=== PATIENT | male | born 1995 | race Caucasian/White ===

== ENCOUNTER 2023-11-23 22:50 | Emergency (ER) | payer OTHER ==
[2023-11-23 23:12] VITALS: TEMP 97.8
[2023-11-23] MEDS ORDERED: SODIUM CHLORIDE 0.9% 1,000 ML IV ONE (23:16)
[2023-11-23] MEDS ORDERED: MORPHINE SULFATE 4 MG/ML SYRINGE IV STA (23:19)
[2023-11-24] LABS: Basophils # (A) 0.1 k/uL (0-0.2); Basophils % (A) 1 %; Eosinophils % (A) 0 %; HCT 48.1 % (39.0-53.0); HGB 16.7 gm/dL (13.0-17.5); Lymphocytes # (A) 1.3 k/uL (1.0-4.8); Lymphocytes % (A) 12 %; MCH 31.5 pg (25.0-35.0); MCHC 34.8 g/dL (31.0-37.0); MCV 90.4 fL (80.0-100.0); Mean Platelet Volume 7.9; Monocytes # (A) 1.2 k/uL (0-1.0); Monocytes % (A) 11 %; Neutrophils % (A) 74 %; Platelet Count 189 k/uL (150-450); RBC 5.32 m/uL (4.30-5.90); RDW 12.1 % (11.5-15.5); WBC 10.8 k/uL (3.8-10.6)
[2023-11-24 00:09] LABS: ALT 36 U/L (4-49); African American GFR (CKD) >90 (>60 ml/min/1.73 sqM); Amylase 72 U/L (30-110); Anion Gap 17 mmol/L; Blood Urea Nitrogen 12 mg/dL (9-20); Calcium 9.4 mg/dL (8.4-10.2); Carbon Dioxide 17 mmol/L (22-30); Chloride 96 mmol/L (98-107); Glucose 116 mg/dL (74-99); Lipase 104 U/L (23-300); Non-African American GFR(CKD) >90 (>60 ml/min/1.73 sqM); Sodium 130 mmol/L (137-145); Total Bilirubin 0.7 mg/dL (0.2-1.3); Total Protein 8.8 g/dL (6.3-8.2)
[2023-11-24 00:22] LABS: Potassium 4.2 mmol/L (3.5-5.1)
[2023-11-24 00:23] LABS: AST 43 U/L (17-59); Alkaline Phosphatase 84 U/L (38-126)
[2023-11-24 01:17] LABS: Appearance,Urine Clear (Clear); Bilirubin,Urine Negative (Negative); Blood,Urine Moderate (Negative); Color,Urine Colorless; Glucose,Urine (UA) Negative (Negative); Ketones,Urine Negative (Negative); Leukocyte Esterase,Urine Negative (Negative); Mucus,Urine Rare /hpf; Nitrite,Urine Negative (Negative); PH, Urine 5.5 (5.0-8.0); Protein,Urine Negative (Negative); RBC,Urine 3 /hpf (0-5); Specific Gravity,Urine 1.007 (1.001-1.035); Urobilinogen,Urine <2.0 mg/dL (<2.0); WBC,Urine <1 /hpf (0-5)
[2023-11-24 01:25] VITALS: PULSE 95; RESP 16
--- NOTE | 2023-11-24 01:32 | CT ---
EXAM: CT Abdomen and Pelvis Without Intravenous Contrast CLINICAL HISTORY: ITS.REASON CT Reason: abdominal pain TECHNIQUE: Axial computed tomography images of the abdomen and pelvis without intravenous contrast. CTDI is 18.6 mGy and DLP is 1123 mGy-cm. This CT exam was performed using one or more of the following dose reduction techniques: automated exposure control, adjustment of the mA and/or kV according to patient size, and/or use of iterative reconstruction technique. COMPARISON: No relevant prior studies available. FINDINGS: Lung bases: Unremarkable. No mass. No consolidation. ABDOMEN: Liver: Hepatic steatosis. Gallbladder and bile ducts: Unremarkable. No calcified stones. No ductal dilation. Pancreas: Unremarkable. No ductal dilation. Spleen: Unremarkable. No splenomegaly. Adrenals: Unremarkable. No mass. Kidneys and ureters: Unremarkable. No hydronephrosis or nephrolithiasis. Stomach and bowel: Diverticulosis, without acute diverticulitis. No small bowel obstruction. No free air. PELVIS: Appendix: No findings to suggest acute appendicitis. Bladder: Decompressed urinary bladder. No stones. Reproductive: Unremarkable as visualized. ABDOMEN and PELVIS: Intraperitoneal space: See above. Bones/joints: No acute fracture. No dislocation. Soft tissues: Small fat containing a focal hernia. Vasculature: Unremarkable. No abdominal aortic aneurysm. Lymph nodes: Unremarkable. No enlarged lymph nodes. IMPRESSION: No acute findings in the abdomen or pelvis.
--- NOTE | 2023-11-24 01:42 | ED ---
Abdominal Pain HPI - General Chief Complaint: Abdominal Pain Stated Complaint: Abdominal Pain Time Seen by Provider: 11/23/23 22:58 Source: patient Mode of arrival: ambulatory Limitations: no limitations - Related Data Previous Rx's Medication Instructions Recorded Dicyclomine [Bentyl] 20 mg PO QID #15 tablet 11/24/23 Allergies Allergy/AdvReac Type Severity Reaction Status Date / Time No Known Allergies Allergy Verified 06/22/16 06:52 Review of Systems ROS Statement: Those systems with pertinent positive or pertinent negative responses have been documented in the HPI. ROS Other: All systems not noted in ROS Statement are negative. Past Medical History Past Medical History: No Reported History History of Any Multi-Drug Resistant Organisms: None Reported Past Surgical History: No Surgical Hx Reported Past Psychological History: No Psychological Hx Reported Smoking Status: Current every day smoker Past Alcohol Use History: None Reported Past Drug Use History: None Reported General Exam Limitations: no limitations Course Vital Signs 11/23/23 11/23/23 11/24/23 22:52 23:49 01:21 Temperature 97.8 F Pulse Rate 114 H 100 95 Respiratory 20 18 16 Rate Blood Pressure 134/84 136/79 132/82 O2 Sat by Pulse 99 100 95 Oximetry Medical Decision Making - Lab Data Result diagrams: 11/23/23 23:36 11/23/23 23:36 Lab Results 11/23/23 11/23/23 11/23/23 Range/Units 23:36 23:36 23:36 WBC 10.8 H (3.8-10.6) k/uL RBC 5.32 (4.30-5.90) m/uL Hgb 16.7 (13.0-17.5) gm/dL Hct 48.1 (39.0-53.0) % MCV 90.4 (80.0-100.0) fL MCH 31.5 (25.0-35.0) pg MCHC 34.8 (31.0-37.0) g/dL RDW 12.1 (11.5-15.5) % Plt Count 189 (150-450) k/uL MPV 7.9 Neutrophils % 74 % Lymphocytes % 12 % Monocytes % 11 % Eosinophils % 0 % Basophils % 1 % Neutrophils # 8.0 H (1.3-7.7) k/uL Lymphocytes # 1.3 (1.0-4.8) k/uL Monocytes # 1.2 H (0-1.0) k/uL Eosinophils # 0.0 (0-0.7) k/uL Basophils # 0.1 (0-0.2) k/uL Sodium 130 L (137-145) mmol/L Potassium 4.2 (3.5-5.1) mmol/L Chloride 96 L (98-107) mmol/L Carbon Dioxide 17 L (22-30) mmol/L Anion Gap 17 mmol/L BUN 12 (9-20) mg/dL Creatinine 0.78 (0.66-1.25) mg/dL Est GFR (CKD-EPI)AfAm >90 (>60 ml/min/1.73 sqM) Est GFR (CKD-EPI)NonAf >90 (>60 ml/min/1.73 sqM) Glucose 116 H (74-99) mg/dL Plasma Lactic Acid Jay 1.0 (0.7-2.0) mmol/L Calcium 9.4 (8.4-10.2) mg/dL Total Bilirubin 0.7 (0.2-1.3) mg/dL AST 43 (17-59) U/L ALT 36 (4-49) U/L Alkaline Phosphatase 84 (38-126) U/L Troponin I (0.000-0.034) ng/mL Total Protein 8.8 H (6.3-8.2) g/dL Albumin 5.0 (3.5-5.0) g/dL Amylase 72 (30-110) U/L Lipase 104 (23-300) U/L Urine Color Urine Appearance (Clear) Urine pH (5.0-8.0) Ur Specific [place] (1.001-1.035) Urine Protein (Negative) Urine Glucose (UA) (Negative) Urine Ketones (Negative) Urine Blood (Negative) Urine Nitrite (Negative) Urine Bilirubin (Negative) Urine Urobilinogen (<2.0) mg/dL Ur Leukocyte Esterase (Negative) Urine RBC (0-5) /hpf Urine WBC (0-5) /hpf Urine Mucus (None) /hpf 11/23/23 11/24/23 Range/Units 23:36 00:50 WBC (3.8-10.6) k/uL RBC (4.30-5.90) m/uL Hgb (13.0-17.5) gm/dL Hct (39.0-53.0) % MCV (80.0-100.0) fL MCH (25.0-35.0) pg MCHC (31.0-37.0) g/dL RDW (11.5-15.5) % Plt Count (150-450) k/uL MPV Neutrophils % % Lymphocytes % % Monocytes % % Eosinophils % % Basophils % % Neutrophils # (1.3-7.7) k/uL Lymphocytes # (1.0-4.8) k/uL Monocytes # (0-1.0) k/uL Eosinophils # (0-0.7) k/uL Basophils # (0-0.2) k/uL Sodium (137-145) mmol/L Potassium (3.5-5.1) mmol/L Chloride (98-107) mmol/L Carbon Dioxide (22-30) mmol/L Anion Gap mmol/L BUN (9-20) mg/dL Creatinine (0.66-1.25) mg/dL Est GFR (CKD-EPI)AfAm (>60 ml/min/1.73 sqM) Est GFR (CKD-EPI)NonAf (>60 ml/min/1.73 sqM) Glucose (74-99) mg/dL Plasma Lactic Acid Jay (0.7-2.0) mmol/L Calcium (8.4-10.2) mg/dL Total Bilirubin (0.2-1.3) mg/dL AST (17-59) U/L ALT (4-49) U/L Alkaline Phosphatase (38-126) U/L Troponin I <0.012 (0.000-0.034) ng/mL Total Protein (6.3-8.2) g/dL Albumin (3.5-5.0) g/dL Amylase (30-110) U/L Lipase (23-300) U/L Urine Color Colorless Urine Appearance Clear (Clear) Urine pH 5.5 (5.0-8.0) Ur Specific [place] 1.007 (1.001-1.035) Urine Protein Negative (Negative) Urine Glucose (UA) Negative (Negative) Urine Ketones Negative (Negative) Urine Blood Moderate H (Negative) Urine Nitrite Negative (Negative) Urine Bilirubin Negative (Negative) Urine Urobilinogen <2.0 (<2.0) mg/dL Ur Leukocyte Esterase Negative (Negative) Urine RBC 3 (0-5) /hpf Urine WBC <1 (0-5) /hpf Urine Mucus Rare H (None) /hpf Disposition Clinical Impression: Abdominal pain Disposition: HOME SELF-CARE Condition: Good Instructions (If sedation given, give patient instructions): Abdominal Pain (ED) Prescriptions: Dicyclomine [Bentyl] 20 mg PO QID #15 tablet Is patient prescribed a controlled substance at d/c from ED?: No Referrals: Gita Serrano MD [Primary Care Provider] - 1-2 days
[2023-11-24 01:49] VITALS: BP 132/82
== END 2023-11-24 01:59 | disposition home or self-care (01) ==
LOC: EC 22:50
DX: R10.9 Unspecified abdominal pain (principal); F17.200 Nicotine dependence, unspecified, uncomplicated
CPT/HCPCS: 36415; 80053; 82150; 83605; 83690; 84484; 85025; 81001; 74176; 99284; 96374; 96361; J2270

== ENCOUNTER 2024-05-02 13:02 | Emergency (ER) | payer OTHER ==
--- NOTE | 2024-05-02 13:19 | ED ---
General Adult HPI - General Chief complaint: Arrhythmia/Palpitations Stated complaint: hard time breathing, tingling hands Time Seen by Provider: 05/02/24 13:09 Source: patient, family, RN notes reviewed Mode of arrival: wheelchair Limitations: no limitations - History of Present Illness Initial comments: Patient is a 29-year-old male presenting to the emergency department with concerns of palpitations. Onset of symptoms was less than 1 hour ago. Patient also feels short of breath and tingling more in his hands however somewhat diffusely. No history of similar symptoms previously. Patient denies stress or anxiety. Patient denies drug use. No stimulant use. Patient does smoke and smoke marijuana. - Related Data Home Medications Medication Instructions Recorded Confirmed No Known Home Medications 05/02/24 05/02/24 Allergies Allergy/AdvReac Type Severity Reaction Status Date / Time No Known Allergies Allergy Verified 05/02/24 13:50 Review of Systems ROS Statement: Those systems with pertinent positive or pertinent negative responses have been documented in the HPI. ROS Other: All systems not noted in ROS Statement are negative. Constitutional: Denies: fever Eyes: Denies: eye pain ENT: Denies: ear pain Respiratory: Reports: as per HPI, cough (Mild cough last couple days), dyspnea Cardiovascular: Reports: as per HPI, palpitations. Denies: chest pain Endocrine: Denies: fatigue Gastrointestinal: Denies: abdominal pain Neurological: Reports: paresthesias Past Medical History Past Medical History: No Reported History History of Any Multi-Drug Resistant Organisms: None Reported Past Surgical History: No Surgical Hx Reported Past Psychological History: No Psychological Hx Reported Smoking Status: Current every day smoker Past Alcohol Use History: None Reported Past Drug Use History: None Reported General Exam Limitations: no limitations General appearance: alert, anxious Head exam: Present: normocephalic Eye exam: Present: normal appearance, PERRL, EOMI Neck exam: Present: normal inspection Respiratory exam: Present: normal lung sounds bilaterally Cardiovascular Exam: Present: tachycardia, normal heart sounds Expanded Peripheral pulses: 2+: Radial (R), Radial (L), Dorsalis Pedis (R), Dorsalis Pedis (L) GI/Abdominal exam: Present: soft. Absent: tenderness Extremities exam: Present: normal inspection. Absent: pedal edema, calf tenderness Neurological exam: Present: alert Psychiatric exam: Present: anxious (Tearful) Skin exam: Present: normal color Course Vital Signs 05/02/24 05/02/24 05/02/24 13:14 13:15 13:30 Temperature 99.2 F Pulse Rate 128 H 126 H 125 H Respiratory 20 24 32 H Rate Blood Pressure 131/90 146/135 131/90 O2 Sat by Pulse 96 98 Oximetry 05/02/24 05/02/24 05/02/24 13:45 14:00 14:30 Temperature Pulse Rate 108 H 111 H Respiratory 32 H 20 18 Rate Blood Pressure 116/86 127/90 124/83 O2 Sat by Pulse 100 98 Oximetry 05/02/24 05/02/24 05/02/24 15:00 15:30 16:00 Temperature Pulse Rate 104 H 118 H 93 Respiratory 15 Rate Blood Pressure 123/90 106/75 136/89 O2 Sat by Pulse 97 97 100 Oximetry EKG Findings - EKG Results: EKG: interpreted by AMBER, sinus rhythm, normal axis, normal QRS, normal ST/T EKG shows: tachycardia Medical Decision Making - Medical Decision Making Was pt. sent in by a medical professional or institution (, PA, TELEPHONE DIRECTORY DISTRIBUTOR DRIVER, urgent care, hospital, or [place] health care facility...) When possible be specific @ -No Did you speak to anyone other than the patient for history (EMS, parent, family, police, friend...)? What history was obtained from this source @ -Family helps provide history as patient does not want to talk at presentat ion Did you review nursing and triage notes (agree or disagree)? Why? @ -I reviewed and agree with nursing and triage notes Were old charts reviewed (outside hosp., previous admission, EMS record, old EKG, old radiological studies, urgent care reports/EKG's, [place] health care facility records)? Report findings @ -No old charts were reviewed Differential Diagnosis (chest pain, altered mental status, abdominal pain women, abdominal pain men, vaginal bleeding, weakness, fever, dyspnea, syncope, headache, dizziness, GI bleed, back pain, seizure, CVA, palpatations, mental health, musculoskeletal)? @ -Differential Palpitations Ventricular arrhythmias, atrial arrhythmias, myocardial infarction, anemia, th yrotoxicosis, electrolyte imbalance, hypokalemia, pulmonary embolism, pulmonary disease, drugs, alcohol, anxiety, stress.... This is not meant to be an all-inclusive list. EKG interpreted by me (3pts min.). @ -As above X-rays interpreted by me (1pt min.). @ -Chest x-ray shows no acute process CT interpreted by me (1pt min.). @ -CT scan showed no pulmonary embolism U/S interpreted by me (1pt. min.). @ -None done What testing was considered but not performed or refused? (CT, X-rays, U/S, labs )? Why? @ -None What meds were considered but not given or refused? Why? @ -None Did you discuss the management of the patient with other professionals (professionals i.e. , PA, TELEPHONE DIRECTORY DISTRIBUTOR DRIVER, lab, RT, psych nurse, sexual assault social worker, wrapper layer and examiner soft work, teacher, air intelligence officer, case aide)? Give summary @ -No Was smoking cessation discussed for >3mins.? @ -No Was critical care preformed (if so, how long)? @ -No Were there social determinants of health that impacted care today? How? (Homelessness, low income, unemployed, alcoholism, drug addiction, transportation, low edu. Level, literacy, decrease access to med. care, shelter, rehab)? @ -No Was there de-escalation of care discussed even if they declined (Discuss DNR or withdrawal of care, Hospice)? DNR status @ -No What co-morbidities impacted this encounter? (DM, HTN, Smoking, COPD, CAD, Cancer, CVA, ARF, Chemo, Hep., AIDS, mental health diagnosis, sleep apnea, morbid obesity)? @ -None Was patient admitted / discharged? Hospital course, mention meds given and route, prescriptions, significant lab abnormalities, going to OR and other pertinent info. @ -Patient reevaluated and symptoms resolved following Ativan. Patient family updated on results and need for follow-up. Undiagnosed new problem with uncertain prognosis? @ -No Drug Therapy requiring intensive monitoring for toxicity (Heparin, Nitro, Insulin, Cardizem)? @ -No Were any procedures done? @ -No Diagnosis/symptom? @ -Palpitation Acute, or Chronic, or Acute on Chronic? @ -Acute Uncomplicated (without systemic symptoms) or Complicated (systemic symptoms)? @ -Default Side effects of treatment? @ -No Exacerbation, Progression, or Severe Exacerbation? @ -No Poses a threat to life or bodily function? How? (Chest pain, [place], [place], pneumonia, PE, COPD, DKA, ARF, appy, cholecystitis, CVA, Diverticulitis, Homicidal, Suicidal, threat to staff... and all critical care pts) @ -No - Lab Data Result diagrams: 05/02/24 13:14 05/02/24 13:14 Lab Results 05/02/24 05/02/24 05/02/24 Range/Units 13:14 13:14 13:14 WBC 11.6 H (3.8-10.6) k/uL RBC 6.04 H (4.30-5.90) m/uL Hgb 18.7 H (13.0-17.5) gm/dL Hct 52.9 (39.0-53.0) % MCV 87.5 (80.0-100.0) fL MCH 30.9 (25.0-35.0) pg MCHC 35.3 (31.0-37.0) g/dL RDW 12.2 (11.5-15.5) % Plt Count 284 (150-450) k/uL MPV 7.5 Neutrophils % 88 % Lymphocytes % 6 % Monocytes % 4 % Eosinophils % 1 % Basophils % 1 % Neutrophils # 10.1 H (1.3-7.7) k/uL Lymphocytes # 0.7 L (1.0-4.8) k/uL Monocytes # 0.5 (0-1.0) k/uL Eosinophils # 0.1 (0-0.7) k/uL Basophils # 0.1 (0-0.2) k/uL PT 12.1 (10.0-12.5) sec INR 1.1 (<1.2) APTT 28.8 (22.0-30.0) sec D-Dimer 2.65 H (<0.60) mg/L FEU Sodium 132 L (137-145) mmol/L Potassium 3.7 (3.5-5.1) mmol/L Chloride 102 (98-107) mmol/L Carbon Dioxide 20 L (22-30) mmol/L Anion Gap 10 mmol/L BUN 11 (9-20) mg/dL Creatinine 1.07 (0.66-1.25) mg/dL Est GFR (CKD-EPI)AfAm >90 (>60 ml/min/1.73 sqM) Est GFR (CKD-EPI)NonAf >90 (>60 ml/min/1.73 sqM) Glucose 144 H (74-99) mg/dL Plasma Lactic Acid Jay (0.7-2.0) mmol/L Calcium 8.8 (8.4-10.2) mg/dL Magnesium 1.4 L (1.6-2.3) mg/dL Total Bilirubin 0.8 (0.2-1.3) mg/dL AST 27 (17-59) U/L ALT 35 (4-49) U/L Alkaline Phosphatase 99 (38-126) U/L Troponin I (0.000-0.034) ng/mL Total Protein 7.8 (6.3-8.2) g/dL Albumin 4.4 (3.5-5.0) g/dL 05/02/24 05/02/24 Range/Units 13:14 13:14 WBC (3.8-10.6) k/uL RBC (4.30-5.90) m/uL Hgb (13.0-17.5) gm/dL Hct (39.0-53.0) % MCV (80.0-100.0) fL MCH (25.0-35.0) pg MCHC (31.0-37.0) g/dL RDW (11.5-15.5) % Plt Count (150-450) k/uL MPV Neutrophils % % Lymphocytes % % Monocytes % % Eosinophils % % Basophils % % Neutrophils # (1.3-7.7) k/uL Lymphocytes # (1.0-4.8) k/uL Monocytes # (0-1.0) k/uL Eosinophils # (0-0.7) k/uL Basophils # (0-0.2) k/uL PT (10.0-12.5) sec INR (<1.2) APTT (22.0-30.0) sec D-Dimer (<0.60) mg/L FEU Sodium (137-145) mmol/L Potassium (3.5-5.1) mmol/L Chloride (98-107) mmol/L Carbon Dioxide (22-30) mmol/L Anion Gap mmol/L BUN (9-20) mg/dL Creatinine (0.66-1.25) mg/dL Est GFR (CKD-EPI)AfAm (>60 ml/min/1.73 sqM) Est GFR (CKD-EPI)NonAf (>60 ml/min/1.73 sqM) Glucose (74-99) mg/dL Plasma Lactic Acid Jay 2.0 (0.7-2.0) mmol/L Calcium (8.4-10.2) mg/dL Magnesium (1.6-2.3) mg/dL Total Bilirubin (0.2-1.3) mg/dL AST (17-59) U/L ALT (4-49) U/L Alkaline Phosphatase (38-126) U/L Troponin I <0.012 (0.000-0.034) ng/mL Total Protein (6.3-8.2) g/dL Albumin (3.5-5.0) g/dL Disposition Clinical Impression: Palpitations Disposition: HOME SELF-CARE Condition: Stable Instructions (If sedation given, give patient instructions): Heart Palpitations (ED), Anxiety (ED) Additional Instructions: Please do follow-up with your primary care physician in the next day or 2 for recheck. Return for increased heart rate, shortness of breath, pain, worsening or changing symptoms or other concerns. Have your primary care physician review CT scan results and follow-up regarding nodules Is patient prescribed a controlled substance at d/c from ED?: No Referrals: None,Stated [REFERRING] - 1-2 days Mick Mcmahon MD [STAFF PHYSICIAN] - 1-2 days Time of Disposition: 16:35
[2024-05-02 13:24] VITALS: TEMP 99.2
[2024-05-02] MEDS: LORazepam 2 MG/ML INJ IV STA ×2 (13:25→15:35)
[2024-05-02 13:32] LABS: Basophils # (A) 0.1 k/uL (0-0.2); Basophils % (A) 1 %; Eosinophils # (A) 0.1 k/uL (0-0.7); Eosinophils % (A) 1 %; HCT 52.9 % (39.0-53.0); HGB 18.7 gm/dL (13.0-17.5); Lymphocytes # (A) 0.7 k/uL (1.0-4.8); Lymphocytes % (A) 6 %; MCH 30.9 pg (25.0-35.0); MCHC 35.3 g/dL (31.0-37.0); MCV 87.5 fL (80.0-100.0); Mean Platelet Volume 7.5; Monocytes # (A) 0.5 k/uL (0-1.0); Monocytes % (A) 4 %; Neutrophils # (A) 10.1 k/uL (1.3-7.7); Neutrophils % (A) 88 %; Platelet Count 284 k/uL (150-450); RBC 6.04 m/uL (4.30-5.90); RDW 12.2 % (11.5-15.5); WBC 11.6 k/uL (3.8-10.6)
[2024-05-02 13:36] LABS: ALT 35 U/L (4-49); AST 27 U/L (17-59); African American GFR (CKD) >90 (>60 ml/min/1.73 sqM); Albumin 4.4 g/dL (3.5-5.0); Alkaline Phosphatase 99 U/L (38-126); Anion Gap 10 mmol/L; Blood Urea Nitrogen 11 mg/dL (9-20); Calcium 8.8 mg/dL (8.4-10.2); Carbon Dioxide 20 mmol/L (22-30); Chloride 102 mmol/L (98-107); Glucose 144 mg/dL (74-99); Magnesium 1.4 mg/dL (1.6-2.3); Non-African American GFR(CKD) >90 (>60 ml/min/1.73 sqM); Potassium 3.7 mmol/L (3.5-5.1); Sodium 132 mmol/L (137-145); Total Bilirubin 0.8 mg/dL (0.2-1.3); Total Protein 7.8 g/dL (6.3-8.2)
--- NOTE | 2024-05-02 13:38 | XR ---
EXAMINATION TYPE: XR chest 2V DATE OF EXAM: 05/02/2024 COMPARISON: NONE HISTORY: Difficulty breathing TECHNIQUE: Frontal and lateral views of the chest are obtained. FINDINGS: There is no focal air space opacity, pleural effusion, or pneumothorax seen. The cardiac silhouette size is within normal limits. The osseous structures are intact. IMPRESSION: No acute cardiopulmonary process.
[2024-05-02 13:45] LABS: INR 1.1 (<1.2); Partial Thromboplastin Time 28.8 sec (22.0-30.0); Prothrombin Time 12.1 sec (10.0-12.5)
--- NOTE | 2024-05-02 14:53 | CT ---
EXAMINATION TYPE: CT angio chest CT DLP: 647.7 mGycm, Automated exposure control for dose reduction was used. DATE OF EXAM: 05/02/2024 2:38 PM COMPARISON: 05/02/2024 CLINICAL INDICATION:Male, 29 years old with history of dyspnea; Chest pain and d-dimer TECHNIQUE/CONTRAST: CTA scan of the thorax is performed with IV Contrast, patient injected with 100 ml mL of Isovue 370, MIP images are created and reviewed these are created on a separate workstation.. FINDINGS: Pulmonary Artery: There is no evidence for a filling defect within the pulmonary vasculature to sugge st acute pulmonary embolism. The pulmonary artery is of normal size. Lungs/Pleura: No evidence of focal consolidation, pleural effusion or pneumothorax. Airway: Large airways are patent. Heart: Heart is within normal limits for size. Vasculature: No evidence of aortic aneurysm. Mediastinum: No gross evidence of adenopathy. Musculoskeletal: No acute osseous abnormalities Soft Tissues/lymph nodes: Unremarkable. Lower neck: No significant findings. Upper Abdomen: Diffuse low-attenuation to the liver parenchyma.. IMPRESSION: No evidence of pulmonary embolism or acute process. Follow up recommendations for incidental pulmonary nodules, if there are any, are per [employer] or [employer]. https://radiopaedia.org/articles/zdhpycaglc-boutvqp-ubrjwytfg-npubvy-ecdyomczmguhyuk-5?lang=us
[2024-05-02] MEDS ORDERED: LORazepam 2 MG/ML INJ IV STA (15:29)
[2024-05-02 17:53] VITALS: BP 126/75; PULSE 122; RESP 18
== END 2024-05-02 17:49 | disposition home or self-care (01) ==
LOC: EC 13:02
DX: R00.2 Palpitations (principal); R00.0 Tachycardia, unspecified; F17.200 Nicotine dependence, unspecified, uncomplicated
CPT/HCPCS: 99285; 96374; 96376; 36415; 93005; 85379; 80053; 83605; 83735; 84484; 85025; 85610; 85730; 71046; 71275; J2060; Q9967; 96375